=== PATIENT | male | born 1960 | race Caucasian/White ===

== ENCOUNTER 2016-11-12 12:30 | Emergency (ER) | payer SELFPAY ==
[~2016-11-12] VITALS: Ht 177.8 cm; Wt 83.9 kg
[2016-11-12 13:41] VITALS: BP 152/99
== END 2016-11-12 13:42 | disposition home or self-care (01) ==
LOC: ER 12:31
DX: L03.114 Cellulitis of left upper limb (principal); L03.113 Cellulitis of right upper limb; I10 Essential (primary) hypertension; Z59.0 Homelessness; F17.210 Nicotine dependence, cigarettes, uncomplicated
CPT/HCPCS: 73130; 99284; A4606; Z7610

== ENCOUNTER 2018-03-29 00:22 | Emergency (ER) | payer SELFPAY ==
[~2018-03-29] VITALS: Ht 177.8 cm; Wt 78.9 kg
[2018-03-29 00:23] VITALS: BP 167/110
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
--- NOTE | 2018-03-29 00:53 | NUR ---
pt states "i do not want any sort of treatments. Just wrap my head with a bandage and let me go home. I dont need anyhting". made aware
--- NOTE | 2018-03-29 01:15 | NUR ---
Patient does not wish to proceed with medical care recommended by Dr. MEREDITH ). Patient given information related to possible complications, up to and including , which could occur as a result of leaving the hospital at this time. Patient verbalizes understanding of risks involved due to leaving against medical advice. Patient has signed AMA form. vss
--- NOTE | 2018-03-29 01:16 | NUR ---
PT LEFT STATING "IM GOING AND ILL BE IN THE WAITING ROOM". PT LEFT BEFORE [employer] COULD TAKE REPORT FROM PT. MADE AWARE.
--- NOTE | 2018-03-29 01:29 | NUR ---
[facility] IN WAITING ROOM SPEAKING WITH PT.
== END 2018-03-29 01:20 | disposition left against medical advice (07) ==
LOC: ER 00:24
DX: S01.01XA Laceration without foreign body of scalp, initial encounter (principal); G40.909 Epilepsy, unspecified, not intractable, without status epilepticus; I10 Essential (primary) hypertension; F17.210 Nicotine dependence, cigarettes, uncomplicated; Z59.0 Homelessness; Y04.8XXA Assault by other bodily force, initial encounter; Y93.89 Activity, other specified; Y92.89 Other specified places as the place of occurrence of the external cause; Y99.8 Other external cause status
CPT/HCPCS: A4606; A6402; Z7610

== ENCOUNTER 2018-04-01 06:53 | Emergency (ER) | payer SELFPAY ==
[~2018-04-01] VITALS: Ht 177.8 cm; Wt 77.1 kg
[2018-04-01 06:53] VITALS: BP 140/89
--- NOTE | 2018-04-01 07:22 | NUR ---
PT TO CT.
== END 2018-04-01 08:24 | disposition home or self-care (01) ==
LOC: ER 06:59
DX: S09.8XXA Other specified injuries of head, initial encounter (principal); F17.210 Nicotine dependence, cigarettes, uncomplicated; I10 Essential (primary) hypertension; Z86.19 Personal history of other infectious and parasitic diseases; Z59.0 Homelessness; Y04.2XXA Assault by strike against or bumped into by another person, initial encounter; Y93.89 Activity, other specified; Y92.89 Other specified places as the place of occurrence of the external cause; Y99.8 Other external cause status
CPT/HCPCS: 70450-TC; A4606; Z7610

== ENCOUNTER 2018-04-26 16:37 | Emergency (ER) | payer SELFPAY ==
[~2018-04-26] VITALS: Ht 177.8 cm; Wt 79.4 kg
[2018-04-26 17:10] VITALS: BP 169/106
== END 2018-04-26 17:52 | disposition home or self-care (01) ==
LOC: ER 16:38
DX: Z13.89 Encounter for screening for other disorder (principal); G40.909 Epilepsy, unspecified, not intractable, without status epilepticus; F17.210 Nicotine dependence, cigarettes, uncomplicated; Z86.19 Personal history of other infectious and parasitic diseases; Z59.0 Homelessness
CPT/HCPCS: 99281; A4606; Z7610; Z7502